=== PATIENT | female | born 1990 | race Caucasian/White ===

== ENCOUNTER 2023-12-09 00:37 | Emergency (ER) | payer OTHER ==
[~2023-12-09] VITALS: Ht 160 cm; Wt 81.2 kg
[2023-12-09] MEDS ORDERED: LACTATED RINGER'S 1,000 ML IV ONE (01:00)
[2023-12-09 01:06] LABS: PH, VENOUS 7.412 (7.31-7.41)
[2023-12-09 01:08] LABS: BASOPHILS 0.4 % (0-2); EOSINOPHILS 1.5 % (0-6); HEMATOCRIT 34.8 % (35.0-50.0); HEMOGLOBIN 11.8 g/dL (12.0-18.0); LYMPHOCYTES 25.9 % (24-44); MCH 30.5 (27-36); MCHC 33.9 g/dl (30-36); MONOCYTES 5.8 % (0-12); NEUTROPHILS 66.4 % (39-80); PLATELET COUNT 277 K/uL (140-440); RBC 3.87 M/ul (4.3-5.7)
[2023-12-09 01:34] LABS: ACETAMINOPHEN 0 ug/mL (10-30); ALBUMIN 3.5 g/dL (3.4-5.0); ALCOHOL, MEDICAL <3 ng/dL (<3); ALKALINE PHOSPHATASE 73 U/L (46-116); ALT (SGPT) 24 U/L (14-59); ANION GAP 13.3 (7-21); AST (SGOT) 24 U/L (15-37); BILIRUBIN, TOTAL 0.2 ng/dL (0.2-1.0); BUN/CREATININE RATIO 13.09 (6.0-28.6); CALCIUM 8.6 mg/dL (8.5-10.1); CARBON DIOXIDE 24 mmol/L (21-32); CHLORIDE 107 mmol/L (98-107); CREATININE, SERUM 0.84 mg/dL (0.55-1.02); GLOMERULAR FILTRATION RATE,EST 95 mL/min (>60); POTASSIUM 3.3 mmol/L (3.5-5.1); PROTEIN, TOTAL 7.4 g/dL (6.4-8.2); SALICYLATE 1.9 mg/dL (2.8-20.0); UREA NITROGEN 11 mg/dL (7-18)
[2023-12-09] MEDS ORDERED: NALOXONE 4 MG NASAL SPRAY #2 HOME.PACK NAS ONE (02:00)
[2023-12-09 05:17] VITALS: BP 130/83
== END 2023-12-09 05:17 | disposition home or self-care (01) ==
LOC: ED 00:37
PROVIDERS: Family Medicine
DX: T40.411A Poisoning by fentanyl or fentanyl analogs, accidental (unintentional), initial encounter (principal); Z91.040 Latex allergy status; Z88.8 Allergy status to other drugs, medicaments and biological substances
CPT/HCPCS: 36415; 80053; 80307; 82803; 84703; 85025; 99284; G0480; J3490; J7121